=== PATIENT | female | born 1980 | race American Indian/Alaskan Native ===

== ENCOUNTER 2017-09-11 04:31 | Emergency (ER) | payer SELFPAY ==
--- NOTE | 2017-09-11 05:22 | XRay Report ---
FINAL REPORT EXAM: XR ANKLE 2V RT HISTORY: swelling TECHNIQUE: AP and lateral views of the right ankle were submitted. FINDINGS: There is soft tissue swelling overlying the lateral malleolus. There is no evidence of fracture. The ankle mortise is well maintained. IMPRESSION: Lateral soft tissue swelling. No evidence of fracture.
[2017-09-11] MEDS ORDERED: MORPHINE IV ONE (06:31)
[2017-09-11] MEDS ORDERED: NACL 0.9% 500 ML 500 ML IV ONE (06:31)
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
[2017-09-11 07:50] LABS: Basophils % (Auto) 0.2 % (0.0-1.8); Eosinophils % (Auto) 0.4 % (0.0-4.3); Mean Corpuscular HGB Conc 34 % (30-34); Mean Corpuscular Hemoglobin 28 pg (28-32); Mean Corpuscular Volume 81 fl (79-97); Platelet Count 361 K/mm3 (140-440); Red Blood Count 4.32 M/mm3 (3.65-5.03); Red Cell Distribution Width 17.6 % (13.2-15.2); White Blood Count 11.6 K/mm3 (4.5-11.0)
[2017-09-11 07:59] LABS: Anion Gap 17 mmol/L; BUN/Creatinine Ratio 20; Blood Urea Nitrogen 10 mg/dL (7-17); Calcium 8.6 mg/dL (8.4-10.2); Carbon Dioxide 23 mmol/L (22-30); Chloride 106.8 mmol/L (98-107); Creatine Kinase 476 units/L (30-135); Glucose 87 mg/dL (65-100); Potassium 3.4 mmol/L (3.6-5.0); Sodium 143 mmol/L (137-145)
[2017-09-11 09:04] VITALS: BP 128/54
== END 2017-09-11 09:40 | disposition home or self-care (01) ==
LOC: ED 04:31
DX: M25.571 Pain in right ankle and joints of right foot (principal); R07.89 Other chest pain; M79.89 Other specified soft tissue disorders
CPT/HCPCS: 29515; 36415; 71020; 72040; 73600; 80048; 82550; 84484; 85025; 93005; 93010; 96374; 99285; J2270; J7040